=== PATIENT | female | born 1955 ===

== ENCOUNTER 2018-06-06 06:19 | Day surgery (SDC) | payer MEDICARE ==
[2018-06-05 11:04] VITALS: BMI 34.2
[2018-06-06] MEDS ORDERED: Lactated Ringer's 500 ML IV SCH (08:00)
[2018-06-06] MEDS ORDERED: Propofol 10 mg/ml Inj (20 ML) ONE (08:10)
[2018-06-06] MEDS ORDERED: Lidocaine Hydrochloride 5 ML INJ ONE (08:10)
[2018-06-06] MEDS ORDERED: Midazolam 2 MG/2 ML VIAL ONE (08:10)
[2018-06-06 08:15] VITALS: O2SAT 100
[2018-06-06 08:52] VITALS: TEMP 98.1
[2018-06-06 09:42] VITALS: BP 133/67; PULSE 79; RESP 13
== END 2018-06-06 09:40 | disposition home or self-care (01) ==
LOC: C.ENDO 06:19
PROVIDERS: ATTEND Internal Medicine Gastroenterology
DX: Z12.11 Encounter for screening for malignant neoplasm of colon (principal); K29.50 Unspecified chronic gastritis without bleeding; B96.81 Helicobacter pylori [H. pylori] as the cause of diseases classified elsewhere; K57.30 Diverticulosis of large intestine without perforation or abscess without bleeding; K64.1 Second degree hemorrhoids; K21.0 Gastro-esophageal reflux disease with esophagitis; R10.32 Left lower quadrant pain; I10 Essential (primary) hypertension; M19.90 Unspecified osteoarthritis, unspecified site; E78.5 Hyperlipidemia, unspecified; Z86.73 Personal history of transient ischemic attack (TIA), and cerebral infarction without residual deficits
CPT/HCPCS: 43239; 88305; 88312; 88342; G0121; J2250; J2704; J7120